=== PATIENT | female | born 1950 | race Caucasian/White ===

== ENCOUNTER 2017-01-04 18:27 | Emergency (ER) | payer MEDICARE, MEDICAID ==
[2017-01-04 18:42] VITALS: BP 125/66
--- NOTE | 2017-01-04 19:14 | EDM.PDOC ---
ED HPI GENERAL MEDICAL PROBLEM - General Chief Complaint: ENT Problem Stated Complaint: COUGH,EYES MATTERED,CONGESTED, [id number] Time Seen by Provider: 01/04/17 19:05 Source of Information: Reports: Patient History Limitations: Reports: No Limitations - History of Present Illness INITIAL COMMENTS - FREE TEXT/NARRATIVE: This 66 yo female patient reports to the ED with a 3 day history of increasing cough, chest, and head congestion. The patient reports she has not attempted to be seen by her primary care provider at this time. The patient reports she may have had a fever yesterday. Onset Date: 01/02/17 Duration: Constant, Getting Worse Location: Reports: Head, Chest Quality: Reports: Ache, Dull, Pressure Severity: Moderate Improves with: Reports: None Worsens with: Reports: None Associated Symptoms: Reports: cough w sputum, Fever/Chills - Related Data Allergies Allergy/AdvReac Type Severity Reaction Status Date / Time ibuprofen AdvReac Mild Nausea Verified 03/20/16 20:22 sulfamethoxazole AdvReac Mild Nausea Verified 03/20/16 20:22 [From Bactrim] Home Meds: Home Meds Ascorbic Acid [Vitamin C] 500 mg PO DAILY 11/07/14 [History] Fenofibrate [Fenofibrate] 160 mg PO DAILY 11/07/14 [History] Fexofenadine/Pseudoephedrine [Sandrita-D 12 Hour] 1 tab PO DAILY PRN 11/07/14 [ History] Levothyroxine 75 mg PO DAILY 11/07/14 [History] Metoprolol Succinate [Toprol XL 50mg] 25 mg PO DAILY 11/07/14 [History] Acetaminophen [Tylenol] 650 mg PO Q6H PRN 12/29/15 [History] Allopurinol [Zyloprim] 1 tab PO DAILY 12/29/15 [History] Aspirin [Halfprin] 1 tab PO DAILY 12/29/15 [History] Calcium Carbonate [Calcium] 1 tab PO BID 12/29/15 [History] Cholecalciferol (Vitamin D3) [Vitamin D3] 1 tab PO DAILY 12/29/15 [History] Cyanocobalamin (Vitamin B12) [Vitamin B12] 1 tab PO DAILY 12/29/15 [History] Multivitamin with Minerals [Multiple Vitamin] 1 tab PO DAILY 12/29/15 [History] Psyllium [Metamucil] 1 tab PO DAILY 12/29/15 [History] Vitamin E 1 tab PO DAILY 12/29/15 [History] Past Medical History HEENT History: Reports: None Cardiovascular History: Reports: High Cholesterol, Hypertension Respiratory History: Reports: SOB Gastrointestinal History: Reports: GERD Genitourinary History: Reports: Other (See Below) Other Genitourinary History: sometimes does not make it to the bathroom fast enough and dribbles in pants ANIMAL NUTRITIONIST History: Reports: Musculoskeletal History: Reports: Fibromyalgia, Gout, Other (See Below) Other Musculoskeletal History: degenerative joint disease Neurological History: Reports: Seizure Psychiatric History: Reports: Depression Endocrine/Metabolic History: Reports: Hypothyroidism Hematologic History: Reports: None Immunologic History: Reports: None Oncologic (Cancer) History: Reports: None Dermatologic History: Reports: None - Infectious Disease History Infectious Disease History: Reports: Chicken Pox, Measles, Mumps - Past Surgical History HEENT Surgical History: Reports: None GI Surgical History: Reports: None Female Surgical History: Reports: Breast Biopsy, Section Musculoskeletal Surgical History: Reports: Shoulder Surgery, Other (See Below) Social & Family History - Tobacco Use Smoking Status *Q: Never Smoker Used Tobacco, but Quit: Yes Month Tobacco Last Used: 500 Second Hand Smoke Exposure: Yes - Caffeine Use Caffeine Use: Reports: Coffee, Soda, Tea - Recreational Drug Use Recreational Drug Use: No - Living Situation & Occupation Living situation: Reports: with Family Occupation: Retired ED ROS GENERAL - Review of Systems Review Of Systems: ROS reveals no pertinent complaints other than HPI. ED EXAM, GENERAL - Physical Exam Exam: See Below Exam Limited By: No Limitations General Appearance: Alert, WD/WN, Mild Distress, Obese Eye Exam: Bilateral Eye: EOMI, Normal Inspection, PERRL Ears: Normal External Exam, Normal Canal, Hearing Grossly Normal, Normal TMs Nose: Normal Inspection, Normal Mucosa, No Blood, Nasal Drainage, Clear Rhinorrhea Throat/Mouth: Normal Inspection, Normal Lips, Normal Teeth, Normal Gums, Normal Oropharynx, Normal Voice, No Airway Compromise Head: Atraumatic, Normocephalic Neck: Normal Inspection, Supple, Non-Tender, Full Range of Motion Respiratory/Chest: No Respiratory Distress, Lungs Clear, Normal Breath Sounds, No Accessory Muscle Use, Chest Non-Tender Cardiovascular: Normal Peripheral Pulses, Regular Rate, Rhythm, No Edema, No Gallop, No JVD, No Murmur, No Rub GI/Abdominal: Normal Bowel Sounds, Soft, Non-Tender, No Organomegaly, No Distention, No Abnormal Bruit, No Mass, Other (obese) (Female) Exam: Deferred Rectal (Female) Exam: Deferred Back Exam: Normal Inspection, Full Range of Motion, NT Extremities: Normal Inspection, Normal Range of Motion, Non-Tender, Normal Capillary Refill, No Pedal Edema Neurological: Alert, Oriented, CN II-XII Intact, Normal Cognition, Normal Gait, Normal Reflexes, No Motor/Sensory Deficits Psychiatric: Normal Affect, Normal Mood Skin Exam: Warm, Dry, Intact, Normal Color, No Rash Lymphatic: No Adenopathy Course - Vital Signs Last Recorded V/S: Last Vital Signs Temp 36.5 C 01/04/17 18:40 Pulse 82 01/04/17 18:40 Resp 16 01/04/17 18:40 BP 125/66 01/04/17 18:40 Pulse Ox 97 01/04/17 18:40 - Orders/Labs/Meds Orders: Active Orders 24 hr Category Date Time Status Chest 2V [CR] Urgent Exams 01/04/17 19:05 Ordered Labs: Laboratory Tests 01/04/17 01/04/17 Range/Units 19:15 19:15 WBC 7.2 (5.0-10.0) 10^3/uL RBC 4.13 L (4.2-5.4) 10^6/uL Hgb 12.7 (12.0-16.0) g/dL Hct 39.0 (37.0-47.0) % MCV 94.4 (80-100) fL MCH 30.8 (27.0-34.0) pg MCHC 32.6 L (33.0-35.0) g/dL Plt Count 235 (150-450) 10^3/uL Neut % (Auto) 60.6 (42.2-75.2) % Lymph % (Auto) 22.9 (20.5-50.1) % [place] % (Auto) 12.1 H (2-8) % Eos % (Auto) 4.0 H (1.0-3.0) % Baso % (Auto) 0.4 (0.0-1.0) % Sodium 143 (135-145) mmol/L Potassium 3.9 (3.6-5.0) mmol/L Chloride 105 (101-111) mmol/L Carbon Dioxide 28.0 (21.0-31.0) mmol/L Anion Gap 13.9 BUN 14 (7-18) mg/dL Creatinine 0.7 (0.6-1.3) mg/dL Est Cr Clr Drug Dosing 66.42 mL/min Estimated GFR (MDRD) > 60 BUN/Creatinine Ratio 20.00 Glucose 122 H (74-105) mg/dL Calcium 9.3 (8.4-10.2) mg/dl Total Bilirubin 0.5 (0.2-1.0) mg/dL AST 16 (10-42) IU/L ALT 16 (10-60) IU/L Alkaline Phosphatase 92 (42-121) IU/L Total Protein 7.4 (6.7-8.2) g/dl Albumin 4.0 (3.2-5.5) g/dl Globulin 3.4 Albumin/Globulin Ratio 1.18 Departure - Departure Time of Disposition: 19:43 Disposition: Home, Self-Care 01 Condition: Fair Clinical Impression: Viral upper respiratory infection - Discharge Information Instructions: Upper Respiratory Infection, Adult, [id number] Forms: ED Department Discharge Care Plan Goals: The patient was advised of the examination, lab and x-ray results during the visit. The patient was encouraged to continue to take [id number] medications for temporary symptom relief. If the patient has any additional symptoms or concerns, the patient should follow-up with her primary care facility or return to the emergency department. - My Orders Last 24 Hours: My Active Orders 01/04/17 19:05 Chest 2V [CR] Urgent - Assessment/Plan Last 24 Hours: My Active Orders 01/04/17 19:05 Chest 2V [CR] Urgent
[2017-01-04 19:40] LABS: CHLORIDE,CL 105 mmol/L (101-111); SODIUM,NA 143 mmol/L (135-145)
== END 2017-01-04 19:50 | disposition home or self-care (01) ==
LOC: DL.ED 18:27
DX: J06.9 Acute upper respiratory infection, unspecified (principal); E78.00 Pure hypercholesterolemia, unspecified; I10 Essential (primary) hypertension; K21.9 Gastro-esophageal reflux disease without esophagitis; E03.9 Hypothyroidism, unspecified; Z88.2 Allergy status to sulfonamides; Z88.6 Allergy status to analgesic agent; Z79.899 Other long term (current) drug therapy; Z79.82 Long term (current) use of aspirin
CPT/HCPCS: 36415; 71020; 80053; 85025; 99283

== ENCOUNTER 2017-02-14 20:07 | Emergency (ER) | payer MEDICARE, MEDICAID ==
[2017-02-14 21:22] VITALS: BP 155/71
[2017-02-14] MEDS ORDERED: Diphtheria,Pertussis(Acell),Tetanus Vaccine 0.5 ML SDV IM ONE (22:15)
[2017-02-14] MEDS ORDERED: Cephalexin 500 MG Cap PO ONE (22:17)
--- NOTE | 2017-02-14 22:21 | EDM.PDOC ---
ED HPI GENERAL MEDICAL PROBLEM - General Chief Complaint: Bite:Animal, Insect Stated Complaint: CAT ATTACKED ON HEAD, [id number] Time Seen by Provider: 02/14/17 22:16 Source of Information: Reports: Patient History Limitations: Reports: No Limitations - History of Present Illness INITIAL COMMENTS - FREE TEXT/NARRATIVE: got scratch by olimpiaa cat PLAN EXAMINER. Head Pain Score (Numeric/FACES): 8 - Related Data Allergies Allergy/AdvReac Type Severity Reaction Status Date / Time ibuprofen AdvReac Mild Nausea Verified 02/14/17 21:17 sulfamethoxazole AdvReac Mild Nausea Verified 02/14/17 21:17 [From Bactrim] Home Meds: Home Meds Ascorbic Acid [Vitamin C] 500 mg PO DAILY 11/07/14 [History] Fenofibrate [Fenofibrate] 160 mg PO DAILY 11/07/14 [History] Fexofenadine/Pseudoephedrine [Sandrita-D 12 Hour] 1 tab PO DAILY PRN 11/07/14 [ History] Levothyroxine 75 mg PO DAILY 11/07/14 [History] Metoprolol Succinate [Toprol XL 50mg] 25 mg PO DAILY 11/07/14 [History] Acetaminophen [Tylenol] 650 mg PO Q6H PRN 12/29/15 [History] Allopurinol [Zyloprim] 1 tab PO DAILY 12/29/15 [History] Aspirin [Halfprin] 1 tab PO DAILY 12/29/15 [History] Calcium Carbonate [Calcium] 1 tab PO BID 12/29/15 [History] Cholecalciferol (Vitamin D3) [Vitamin D3] 1 tab PO DAILY 12/29/15 [History] Cyanocobalamin (Vitamin B12) [Vitamin B12] 1 tab PO DAILY 12/29/15 [History] Multivitamin with Minerals [Multiple Vitamin] 1 tab PO DAILY 12/29/15 [History] Psyllium [Metamucil] 1 tab PO DAILY 12/29/15 [History] Vitamin E 1 tab PO DAILY 12/29/15 [History] Past Medical History HEENT History: Reports: Impaired Vision Cardiovascular History: Reports: High Cholesterol, Hypertension Respiratory History: Reports: SOB Gastrointestinal History: Reports: GERD Genitourinary History: Reports: Other (See Below) Other Genitourinary History: sometimes does not make it to the bathroom fast enough and dribbles in pants HUMAN RESOURCES INTERN History: Reports: Musculoskeletal History: Reports: Fibromyalgia, Gout, Other (See Below) Other Musculoskeletal History: degenerative joint disease Neurological History: Reports: Seizure Psychiatric History: Reports: Depression Endocrine/Metabolic History: Reports: Diabetes, Type II, Hypothyroidism Hematologic History: Reports: None Immunologic History: Reports: None Oncologic (Cancer) History: Reports: None Dermatologic History: Reports: None - Infectious Disease History Infectious Disease History: Reports: Chicken Pox, Measles, Mumps - Past Surgical History HEENT Surgical History: Reports: None GI Surgical History: Reports: None Female Surgical History: Reports: Breast Biopsy, Section Musculoskeletal Surgical History: Reports: Carpal Tunnel, Shoulder Surgery, Other (See Below) Social & Family History - Family History Family Medical History: Noncontributory - Tobacco Use Smoking Status *Q: Former Smoker Used Tobacco, but Quit: Yes Month Tobacco Last Used: ? Second Hand Smoke Exposure: Yes - Caffeine Use Caffeine Use: Reports: None - Recreational Drug Use Recreational Drug Use: No - Living Situation & Occupation Living situation: Reports: with Family Occupation: Retired ED ROS GENERAL - Review of Systems Review Of Systems: ROS reveals no pertinent complaints other than HPI. ED EXAM, ANIMAL BITE - Physical Exam Exam: See Below Exam Limited By: No Limitations General Appearance: Alert, WD/WN, No Apparent Distress, Other (upset) Ears: Hearing Grossly Normal Throat/Mouth: Normal Voice, No Airway Compromise Head: Other (3 x scratch wound on top of head) Neck: Non-Tender, Full Range of Motion Respiratory/Chest: No Respiratory Distress Cardiovascular: Regular Rate, Rhythm GI/Abdominal: Soft, Non-Tender Neurological: Alert, Oriented, Normal Cognition, Normal Gait, No Motor/Sensory Deficits Psychiatric: Normal Affect, Normal Mood Skin Exam: Normal Color, Warm/Dry ED ANIMAL BITE PROCEDURES - Laceration/Wound Repair Kiefer Head Lac/Wound Length In cm: 3 (3 x scratch top of head) Appearance: Superficial, Linear, Clean Skin Prep: Chlorhexidine (Hibiciens) Exploration/Debridement/Repair: Wound Explored, In a Bloodless Field, No Foreign Material Found Closed With: Dermabond Tetanus Status Addressed: Yes Complications: No Course - Vital Signs Last Recorded V/S: Last Vital Signs Temp 35.8 C 02/14/17 21:18 Pulse 84 02/14/17 21:18 Resp 18 02/14/17 21:18 BP 155/71 H 02/14/17 21:18 Pulse Ox 96 02/14/17 21:18 - Orders/Labs/Meds Orders: Active Orders 24 hr Category Date Time Status Vaccines to be Administered [RC] PER UNIT ROUTINE Care 02/14/17 22:15 Ordered Diphth,Pertuss(Acell),Tet Vac [Adacel] Med 02/14/17 22:15 Once 0.5 ml IM .ONCE ONE Departure - Departure Time of Disposition: 22:20 Disposition: Home, Self-Care 01 Condition: Good Clinical Impression: Cat scratch - Discharge Information Instructions: Animal Bite, [id number] Additional Instructions: 1) don't wash hair for 24 hours. after that may wash and use blow dryer 2) recheck if looks infected rx given; keflex 250mg qid x 40 - My Orders Last 24 Hours: My Active Orders 02/14/17 22:15 Vaccines to be Administered [RC] PER UNIT ROUTINE Diphth,Pertuss(Acell),Tet Vac [Adacel] 0.5 ml IM .ONCE ONE - Assessment/Plan Last 24 Hours: My Active Orders 02/14/17 22:15 Vaccines to be Administered [RC] PER UNIT ROUTINE Diphth,Pertuss(Acell),Tet Vac [Adacel] 0.5 ml IM .ONCE ONE
== END 2017-02-14 22:26 | disposition home or self-care (01) ==
LOC: DL.ED 20:07
DX: S01.01XA Laceration without foreign body of scalp, initial encounter (principal); Z23 Encounter for immunization; W55.03XA Scratched by cat, initial encounter
CPT/HCPCS: 12002; 90471; 90715; 99283; A9270

== ENCOUNTER 2017-04-26 23:18 | Emergency (ER) | payer MEDICARE, MEDICAID ==
[2017-04-26] MEDS ORDERED: Albuterol 0.021% 0.63 MG/3 ML Neb Soln INH ONE (23:19)
[2017-04-26 23:40] VITALS: BP 130/70
[2017-04-26] MEDS ORDERED: Albuterol/Ipratropium 3.0-0.5 MG/3 ML Neb Soln NEB ONE (23:49)
[2017-04-27] MEDS ORDERED: Azithromycin 250 MG Tab PO ONE (00:43)
--- NOTE | 2017-04-27 00:48 | EDM.PDOC ---
ED HPI GENERAL MEDICAL PROBLEM - General Chief Complaint: Respiratory Problem Stated Complaint: BAD COLD AND CHILLS [id number] Time Seen by Provider: 04/27/17 00:44 Source of Information: Reports: Patient History Limitations: Reports: No Limitations - History of Present Illness INITIAL COMMENTS - FREE TEXT/NARRATIVE: been feeling sick past few days, coughing sob hot. - Related Data Allergies Allergy/AdvReac Type Severity Reaction Status Date / Time ibuprofen AdvReac Mild Nausea Verified 04/26/17 23:36 sulfamethoxazole AdvReac Mild Nausea Verified 04/26/17 23:36 [From Bactrim] Home Meds: Home Meds Ascorbic Acid [Vitamin C] 500 mg PO DAILY 11/07/14 [History] Fenofibrate [Fenofibrate] 160 mg PO DAILY 11/07/14 [History] Fexofenadine/Pseudoephedrine [Sandrita-D 12 Hour] 1 tab PO DAILY PRN 11/07/14 [ History] Levothyroxine 75 mg PO DAILY 11/07/14 [History] Metoprolol Succinate [Toprol XL 50mg] 25 mg PO DAILY 11/07/14 [History] Acetaminophen [Tylenol] 650 mg PO Q6H PRN 12/29/15 [History] Allopurinol [Zyloprim] 1 tab PO DAILY 12/29/15 [History] Aspirin [Halfprin] 1 tab PO DAILY 12/29/15 [History] Calcium Carbonate [Calcium] 1 tab PO BID 12/29/15 [History] Cholecalciferol (Vitamin D3) [Vitamin D3] 1 tab PO DAILY 12/29/15 [History] Cyanocobalamin (Vitamin B12) [Vitamin B12] 1 tab PO DAILY 12/29/15 [History] Multivitamin with Minerals [Multiple Vitamin] 1 tab PO DAILY 12/29/15 [History] Psyllium [Metamucil] 1 tab PO DAILY 12/29/15 [History] Vitamin E 1 tab PO DAILY 12/29/15 [History] Past Medical History HEENT History: Reports: Impaired Vision Cardiovascular History: Reports: High Cholesterol, Hypertension Respiratory History: Reports: SOB Gastrointestinal History: Reports: GERD Genitourinary History: Reports: Other (See Below) Other Genitourinary History: sometimes does not make it to the bathroom fast enough and dribbles in pants SOFTWARE RECRUITER History: Reports: Musculoskeletal History: Reports: Fibromyalgia, Gout, Other (See Below) Other Musculoskeletal History: degenerative joint disease Neurological History: Reports: Seizure Psychiatric History: Reports: Depression Endocrine/Metabolic History: Reports: Diabetes, Type II, Hypothyroidism Hematologic History: Reports: None Immunologic History: Reports: None Oncologic (Cancer) History: Reports: None Dermatologic History: Reports: None - Infectious Disease History Infectious Disease History: Reports: Chicken Pox, Measles, Mumps - Past Surgical History HEENT Surgical History: Reports: None GI Surgical History: Reports: None Female Surgical History: Reports: Breast Biopsy, Section Musculoskeletal Surgical History: Reports: Carpal Tunnel, Shoulder Surgery, Other (See Below) Social & Family History - Family History Family Medical History: Noncontributory - Tobacco Use Smoking Status *Q: Unknown Ever Smoked Used Tobacco, but Quit: Yes Month Tobacco Last Used: ? Second Hand Smoke Exposure: Yes - Caffeine Use Caffeine Use: Reports: Soda, Tea - Recreational Drug Use Recreational Drug Use: No - Living Situation & Occupation Living situation: Reports: with Family Occupation: Retired ED ROS GENERAL - Review of Systems Review Of Systems: ROS reveals no pertinent complaints other than HPI. ED EXAM, GENERAL - Physical Exam Exam: See Below Exam Limited By: No Limitations General Appearance: Alert, WD/WN, No Apparent Distress, Other (distraught) Ears: Hearing Grossly Normal Throat/Mouth: Normal Voice, No Airway Compromise Head: Atraumatic Neck: Non-Tender, Full Range of Motion Respiratory/Chest: No Respiratory Distress, No Accessory Muscle Use, Rhonchi. No: Decreased Breath Sounds, Retractions, Splinting Cardiovascular: Regular Rate, Rhythm GI/Abdominal: Soft, Non-Tender Neurological: Alert, Oriented, Normal Cognition, Normal Gait, No Motor/Sensory Deficits Psychiatric: Normal Affect, Normal Mood Skin Exam: Warm, Dry, Normal Color Lymphatic: No Adenopathy Course - Vital Signs Last Recorded V/S: Last Vital Signs Temp 37.0 C 04/26/17 23:39 Pulse 83 04/26/17 23:39 Resp 20 04/26/17 23:39 BP 130/70 04/26/17 23:39 Pulse Ox 95 04/26/17 23:39 - Orders/Labs/Meds Orders: Active Orders 24 hr Category Date Time Status RT Aerosol Therapy [RC] ASDIRECTED Care 04/26/17 23:49 Active Meds: Medications Discontinued Medications Generic Name Dose Route Start Last Admin Trade Name Freq PRN Reason Stop Dose Admin Albuterol/Ipratropium 3 ml 04/26/17 23:49 04/26/17 23:54 Duoneb 3.0-0.5 Mg/3 Ml NEB 04/26/17 23:50 3 ml ONETIME ONE Administration Azithromycin 500 mg 04/27/17 00:43 Zithromax PO 04/27/17 00:44 ONETIME ONE - Re-Assessments/Exams Free Text/Narrative Re-Assessment/Exam: 04/27/17 00:46 s/p duoneb = much better. results discussed with pt. Departure - Departure Time of Disposition: 00:46 Disposition: Home, Self-Care 01 Condition: Good Clinical Impression: Bronchospasm with bronchitis, acute - Discharge Information Instructions: Acute Bronchitis, Kpes-zs-Goop Additional Instructions: 1) sleep as much as possible 2) keep warm 3) don't sleep flat at night 4) use neb 3 times daily for breathing 5) recheck as needed rx given; kashmir-arun albuterol 2.5mg solution tid prn - My Orders Last 24 Hours: My Active Orders 04/26/17 23:49 RT Aerosol Therapy [RC] ASDIRECTED - Assessment/Plan Last 24 Hours: My Active Orders 04/26/17 23:49 RT Aerosol Therapy [RC] ASDIRECTED
[2017-04-27] MEDS ORDERED: Albuterol 0.021% 0.63 MG/3 ML Neb Soln ONE (00:53)
== END 2017-04-27 00:50 | disposition home or self-care (01) ==
LOC: DL.ED 23:18
DX: J20.9 Acute bronchitis, unspecified (principal); E78.00 Pure hypercholesterolemia, unspecified; I10 Essential (primary) hypertension; E11.9 Type 2 diabetes mellitus without complications; Z88.8 Allergy status to other drugs, medicaments and biological substances; Z79.899 Other long term (current) drug therapy; Z79.82 Long term (current) use of aspirin
CPT/HCPCS: 71020; 94640; 99283; A9270; 99284

== ENCOUNTER 2017-08-06 05:17 | Day surgery (SDC) | payer MEDICARE, MEDICAID ==
[2017-08-06] MEDS ORDERED: Midazolam 1 MG/ML 2 ML SDV IV ONE ×3 (05:18→06:41)
[2017-08-06] MEDS ORDERED: fentaNYL 100 MCG/2 ML SDV IV ONE ×3 (05:18→06:40)
[2017-08-06] MEDS ORDERED: Dextrose 5%-0.45% NaCl 1,000 ML IV SCH (06:00)
[2017-08-06] MEDS ORDERED: Sodium Chloride 0.9% 10 ML Syringe FLUSH PRN (06:00)
[2017-08-06] MEDS ORDERED: Midazolam 1 MG/ML 2 ML SDV ONE (06:15)
[2017-08-06] MEDS ORDERED: fentaNYL 100 MCG/2 ML SDV ONE (06:15)
[2017-08-06 09:19] VITALS: BP 100/67
--- NOTE | 2017-08-06 12:09 | OR ---
DATE: 08/06/2017 PROCEDURES: Esophagogastroduodenoscopy and multiple pinch biopsies. INSTRUMENT USED: GIF-H180 Olympus video panendoscope. PREMEDICATIONS: No oral topical anesthesia used. Fentanyl 100 mcg intravenous, Versed 1.5 mg intravenous. Nasal 2 L O2 cannula. The procedure was done under pulse oximetry, BP recording, and hand cementer. INDICATION: The patient with a recent onset dysphagia and related chest pain unexplained, not responsive to medical measures, on aspirin. DESCRIPTION OF PROCEDURE: Esophagogastroduodenoscopy is performed for detection of any active erosive lesions. Cardenas esophagus and/or malignancy also under consideration. H. pylori status to be determined, esophageal dilatations if indicated, endoscopic hemostasis therapy if needed. The scope was passed with ease. Adequate visualization of the esophagus was made from proximal to distal areas. No upper esophageal lesions identified. No distal esophageal stricture. No uphill or downhill esophageal varices. No Lucina-Poe tear. Grade A erosive changes were noted by Millard criteria. No esophageal polyp or tumor mass identified. Z-line was seen at around 40 cm distal to the oral verge, configuration consistent with grade 1 by ZAP classification. No proximal gastric varices noted. Gastric fundus examination by retroflexion showed no polypoid lesions. No gastric ulcer, malignant mass, or vascular ectasia identified. Scattered gastric antral erosions were noted. Patchy erythema of the duodenal bulb was noted. Visualized second part of the duodenum was unremarkable. Multiple pinch biopsies were taken from the gastric antrum and proximal body and sent for PyloriTek test for H. pylori, and if negative in an hour, the tissue is to be sent for histopathology. No bleeding was noted from any of the visualized areas at the completion of the examination. IMPRESSION: 1. Patchy duodenitis. 2. Gastric antral erosions. 3. Grade A gastroesophageal reflux disease. The patient tolerated the procedure well. [facility] /[id number]
== END 2017-08-06 08:45 | disposition home or self-care (01) ==
LOC: DL.ENDO 05:17
PROVIDERS: ATTEND Internal Medicine Gastroenterology
DX: K29.50 Unspecified chronic gastritis without bleeding (principal); E66.9 Obesity, unspecified; E11.9 Type 2 diabetes mellitus without complications; F41.1 Generalized anxiety disorder; Z88.2 Allergy status to sulfonamides; Z88.8 Allergy status to other drugs, medicaments and biological substances
CPT/HCPCS: 87077; J2250; J3010; J7042

== ENCOUNTER 2020-07-02 14:35 | Emergency (ER) | payer MEDICAID, MEDICARE ==
[2020-07-02 14:48] VITALS: BP 154/68; PULSE 113
[2020-07-02] MEDS ORDERED: Sodium Chloride 0.9% 1,000 ML IV ONE ×2 (15:04→16:38)
[2020-07-02] MEDS ORDERED: Ondansetron 4 MG/2 ML SDV IV ONE (15:04)
[2020-07-02] MEDS ORDERED: Acetaminophen 325 MG Tab PO ONE (15:04)
[2020-07-02] MEDS: Sodium Chloride 0.9% 10 ML Syringe FLUSH PRN ×2 (15:18→17:12)
[2020-07-02 15:43] LABS: ANION GAP 18.4 mEq/L (7-13); CHLORIDE,CL 103 mmol/L (98-107); SODIUM,NA 139 mmol/L (136-145)
[2020-07-02] MEDS ORDERED: Iopamidol 612 MG/ML 100 ML Bottle IVPUSH ONE (16:21)
--- NOTE | 2020-07-02 17:25 | CT ---
PROCEDURE INFORMATION: Exam: CT Abdomen And Pelvis With Contrast Exam date and time: 07/02/2020 4:55 PM Age: 70 years old Clinical indication: Other: Epigastric and suprapubic pain, diarrhea, clear urine- not infected; Additional info: Gen. Abdominal pain, fever, elev. Lactic acid TECHNIQUE: Imaging protocol: Computed tomography of the abdomen and pelvis with contrast. Radiation optimization: All CT scans at this facility use at least one of these dose optimization techniques: automated exposure control; mA and/or kV adjustment per patient size (includes targeted exams where dose is matched to clinical indication); or iterative reconstruction. Contrast material: [id number]; Contrast volume: 100 ml; Contrast route: INTRAVENOUS (IV); COMPARISON: No relevant prior studies available. FINDINGS: Liver: There is a diffuse decrease in hepatic parenchymal density, consistent with moderate fatty infiltration. There is no mass. Normal opacification of portal and superior mesenteric veins. Gallbladder and bile ducts: Normal. No calcified stones. No ductal dilation. Pancreas: Normal. No ductal dilation. Spleen: Normal. No splenomegaly. Adrenal glands: Normal. No mass. Kidneys and ureters: Normal. No hydronephrosis. Stomach and bowel: Unremarkable. No obstruction. No mucosal thickening. Diverticulosis predominating at the sigmoid colon. No diverticulitis. Appendix: No evidence of appendicitis. Intraperitoneal space: Unremarkable. No free air. No significant fluid collection. Vasculature: Aortoiliac mild atherosclerotic calcification. No abdominal aortic aneurysm. Lymph nodes: Unremarkable. No enlarged lymph nodes. Urinary bladder: Unremarkable as visualized. Reproductive: Unremarkable as visualized. Bones/joints: L5-S1 advanced degenerative disc disease with vacuum disc changes. L5. 5 mm retrolisthesis of L5. Multilevel lumbar spondylitic degenerative disease. No acute fracture. Soft tissues: 4.6 cm fat filled umbilical hernia. There is an infraumbilical left paracentral 5.7 cm fat filled ventral hernia. IMPRESSION: 1. No acute intra-abdominal or pelvic abnormality. 2. Hepatic steatosis. 3. 4.6 fat filled umbilical hernia. 5.7 fat filled infraumbilical hernia. No incarceration. 4. Chronic findings include diverticulosis, L5-S1 degenerative disc disease with L5 retrolisthesis.
--- NOTE | 2020-07-02 18:09 | EDM.PDOC ---
"Scribed by Kaur Jamison 07/02/20 1516 for Juan Manuel Gutiérrez MD ED HPI GENERAL MEDICAL PROBLEM - General Chief Complaint: Abdominal Pain Stated Complaint: NAUSEA Time Seen by Provider: 07/02/20 14:44 Source of Information: Reports: Patient, RN, RN Notes Reviewed History Limitations: Reports: No Limitations - History of Present Illness INITIAL COMMENTS - FREE TEXT/NARRATIVE: Patient presents to ED by POV stating she felt fine yesterday and about 1030 today began running a fever, having chills, feeling nauseated since awakening at 0700hrs. Tmax 102F. She took nothing for fever or nausea, nor her daily pills. Patient admits to burning with urination, dry heaves, and 3-4 episodes of diarrhea. Patient states discomfort to epigastric area, stinging/burning sen sation. Pt rates the pain 10/06. Onset: Today Duration: Constant Location: Reports: Abdomen Quality: Reports: Ache, Burning Severity: Moderate Improves with: Reports: None Worsens with: Reports: Eating, Movement Associated Symptoms: Reports: No Other Symptoms epigastric Pain Score (Numeric/FACES): 6 - Related Data Allergies Allergy/AdvReac Type Severity Reaction Status Date / Time ibuprofen AdvReac Mild Nausea Verified 07/02/20 14:51 sulfamethoxazole AdvReac Mild Nausea Verified 07/02/20 14:51 [From Bactrim] Home Meds: Home Meds Ascorbic Acid [Vitamin C] 500 mg PO DAILY 11/07/14 [History] Fenofibrate 160 mg PO DAILY 11/07/14 [History] Fexofenadine/Pseudoephedrine [Sandrita-D 12 Hour] 1 tab PO DAILY PRN 11/07/14 [History] Levothyroxine 75 mcg PO DAILY 11/07/14 [History] Metoprolol Succinate [Toprol XL 50mg] 25 mg PO DAILY 11/07/14 [History] Acetaminophen [Tylenol] 650 mg PO Q4H PRN 12/29/15 [History] Allopurinol [Zyloprim] 300 mg PO DAILY 12/29/15 [History] Calcium Carbonate [Calcium] 600 mg PO BID 12/29/15 [History] Cholecalciferol (Vitamin D3) [Vitamin D3] 1,000 units PO DAILY 12/29/15 [History] Cyanocobalamin (Vitamin B12) [Vitamin B12] 250 mcg PO DAILY 12/29/15 [History] Multivitamin with Minerals [Multiple Vitamin] 1 tab PO DAILY 12/29/15 [History] Psyllium [Metamucil] 1 tab PO DAILY 12/29/15 [History] Vitamin E 1 tab PO DAILY 12/29/15 [History] Albuterol [IJD: Albuterol] 3 ml INH TID 07/23/17 [History] Albuterol [Ventolin HFA] 2 puff INH Q4HR PRN 07/23/17 [History] Budesonide/Formoterol Fumarate [Symbicort 80-4.5 Mcg Inhaler] 2 puff INH BID 07/23/17 [History] atorvaSTATin [Lipitor] 10 mg PO DAILY 07/23/17 [History] Fluticasone Propionate [Flonase] 2 spray INH BID 07/31/17 [History] Isosorbide Mononitrate [Imdur] 30 mg PO DAILY 07/31/17 [History] Past Medical History HEENT History: Reports: Impaired Vision Cardiovascular History: Reports: High Cholesterol, Hypertension Respiratory History: Reports: Asthma, SOB Other Respiratory History: uses nebulizer prn Gastrointestinal History: Reports: GERD Genitourinary History: Reports: Other (See Below) Other Genitourinary History: sometimes does not make it to the bathroom fast enough and dribbles in pants [employer] History: Reports: Musculoskeletal History: Reports: Back Pain, Chronic, Fibromyalgia, Gout, Neck Pain, Chronic, Other (See Below) Other Musculoskeletal History: degenerative joint disease Neurological History: Reports: Seizure Psychiatric History: Reports: Anxiety, Depression Endocrine/Metabolic History: Reports: Diabetes, Type II, Hypothyroidism Hematologic History: Reports: None Immunologic History: Reports: None Oncologic (Cancer) History: Reports: None Dermatologic History: Reports: None - Infectious Disease History Infectious Disease History: Reports: Chicken Pox, Measles, Mumps - Past Surgical History Head Surgeries/Procedures: Reports: None HEENT Surgical History: Reports: None Cardiovascular Surgical History: Reports: None GI Surgical History: Reports: None Female Surgical History: Reports: Breast Biopsy, Section Musculoskeletal Surgical History: Reports: Carpal Tunnel, Shoulder Surgery, Other (See Below) Other Musculoskeletal Surgeries/Procedures:: L) knee arthrotomy Social & Family History - Family History Family Medical History: No Pertinent Family History - Caffeine Use Caffeine Use: Reports: Soda, Tea Caffeine Use Comment: 1 can pop daily prn - Living Situation & Occupation Living situation: Reports: with Family Occupation: Retired ED ROS GENERAL - Review of Systems Review Of Systems: Comprehensive ROS is negative, except as noted in HPI. ED EXAM, GENERAL - Physical Exam Exam: See Below Exam Limited By: No Limitations General Appearance: Alert, No Apparent Distress, Obese Eye Exam: Bilateral Eye: Normal Inspection (No scleral icterus) Nose: Normal Inspection Throat/Mouth: Normal Lips, Normal Voice, No Airway Compromise, Other (Dry oral mucosa) Head: Atraumatic, Normocephalic Neck: Normal Inspection, Supple, Non-Tender, Full Range of Motion Respiratory/Chest: No Respiratory Distress, Lungs Clear, Normal Breath Sounds, No Accessory Muscle Use, Chest Non-Tender Cardiovascular: Regular Rate, Rhythm, Tachycardia GI/Abdominal: Normal Bowel Sounds, Soft, Tender (Epigastric and suprapubic). No: Guarding, Rigid, Rebound Back Exam: Normal Inspection, CVA Tenderness (R). No: CVA Tenderness (L) Extremities: Normal Inspection, Non-Tender, No Pedal Edema Neurological: Alert, Oriented, CN II-XII Intact, Normal Cognition, Normal Gait, No Motor/Sensory Deficits Psychiatric: Normal Mood Skin Exam: Warm, Dry, Intact, Normal Color, No Rash Course - Vital Signs Last Recorded V/S: Last Vital Signs Temp 99.2 F 07/02/20 14:47 Pulse 113 H 07/02/20 14:47 Resp 20 07/02/20 14:47 BP 154/68 H 07/02/20 14:47 Pulse Ox 95 07/02/20 14:47 - Orders/Labs/Meds Orders: Active Orders 24 hr Category Date Time Status Peripheral IV Care [RC] . DIRECTED Care 07/02/20 15:04 Active CULTURE BLOOD [BC] Stat Lab 07/02/20 15:09 Received CULTURE BLOOD [BC] Stat Lab 07/02/20 15:15 Received CULTURE URINE [RM] Stat Lab 07/02/20 15:47 Received LACTIC ACID [CHEM] Stat Lab 07/02/20 17:35 Received Sodium Chloride 0.9% [Saline Flush] Med 07/02/20 15:03 Active 10 ml FLUSH ASDIRECTED PRN Blood Culture x2 Reflex Set [OM.PC] Stat Oth 07/02/20 15:03 Ordered Peripheral IV Insertion Adult [OM.PC] Stat Oth 07/02/20 15:03 Ordered Medication Orders Sodium Chloride (Saline Flush) 10 ml FLUSH ASDIRECTED PRN PRN Reason: Keep Vein Open Last Admin: 07/02/20 17:12 Dose: 10 ml Documented by: Admin: 07/02/20 15:18 Dose: 10 ml Documented by: MAYUR Labs: Laboratory Tests 07/02/20 07/02/20 07/02/20 Range/Units 15:09 15:09 15:09 WBC 10.1 H (5.0-10.0) 10^3/uL RBC 5.02 (4.2-5.4) 10^6/uL Hgb 15.5 D (12.0-16.0) g/dL Hct 46.1 (37.0-47.0) % MCV 91.8 (80-100) fL MCH 30.9 (27.0-34.0) pg MCHC 33.6 (33.0-35.0) g/dL Plt Count 222 (150-450) 10^3/uL Neut % (Auto) 89.3 H (42.2-75.2) % Lymph % (Auto) 4.7 L (20.5-50.1) % [place] % (Auto) 4.9 (2-8) % Eos % (Auto) 0.9 L (1.0-3.0) % Baso % (Auto) 0.2 (0.0-1.0) % Sodium 139 (136-145) mmol/L Potassium 4.4 (3.5-5.1) mmol/L Chloride 103 (98-107) mmol/L Carbon Dioxide 22 (21-32) mmol/L Anion Gap 18.4 H (7-13) mEq/L BUN 18 (7-18) mg/dL Creatinine 0.90 (0.55-1.02) mg/dL Est Cr Clr Drug Dosing 48.79 mL/min Estimated GFR (MDRD) > 60 BUN/Creatinine Ratio 20.0 (No establ ref range) Glucose 170 H (74-99) mg/dL Lactic Acid 3.2 H* (0.4-2.0) mmol/L Calcium 8.9 (8.5-10.1) mg/dL Total Bilirubin 0.7 (0.2-1.0) mg/dL AST 15 (15-37) U/L ALT 28 (14-59) U/L Alkaline Phosphatase 77 (46-116) U/L Total Protein 7.9 (6.4-8.2) g/dL Albumin 4.0 (3.4-5.0) g/dL Globulin 3.9 Albumin/Globulin Ratio 1.0 Amylase 26 (25-115) U/L Urine Color (YELLOW) Urine Appearance (CLEAR) Urine pH (5.0-9.0) Ur Specific [place] (1.005-1.030) Urine Protein (NEGATIVE) Urine Glucose (UA) (NEGATIVE) Urine Ketones (NEGATIVE) Urine Occult Blood (NEGATIVE) Urine Nitrite (NEGATIVE) Urine Bilirubin (NEGATIVE) Urine Urobilinogen (0.2-1.0) mg/dL Ur Leukocyte Esterase (NEGATIVE) Urine RBC /HPF Urine WBC (0-5/HPF) /HPF Ur Epithelial Cells (NOT SEEN) /HPF Urine Bacteria (0-FEW/HPF) /HPF Urine Mucus (NOT SEEN) /LPF 07/02/20 Range/Units 15:47 WBC (5.0-10.0) 10^3/uL RBC (4.2-5.4) 10^6/uL Hgb (12.0-16.0) g/dL Hct (37.0-47.0) % MCV (80-100) fL MCH (27.0-34.0) pg MCHC (33.0-35.0) g/dL Plt Count (150-450) 10^3/uL Neut % (Auto) (42.2-75.2) % Lymph % (Auto) (20.5-50.1) % [place] % (Auto) (2-8) % Eos % (Auto) (1.0-3.0) % Baso % (Auto) (0.0-1.0) % Sodium (136-145) mmol/L Potassium (3.5-5.1) mmol/L Chloride (98-107) mmol/L Carbon Dioxide (21-32) mmol/L Anion Gap (7-13) mEq/L BUN (7-18) mg/dL Creatinine (0.55-1.02) mg/dL Est Cr Clr Drug Dosing mL/min Estimated GFR (MDRD) BUN/Creatinine Ratio (No establ ref range) Glucose (74-99) mg/dL Lactic Acid (0.4-2.0) mmol/L Calcium (8.5-10.1) mg/dL Total Bilirubin (0.2-1.0) mg/dL AST (15-37) U/L ALT (14-59) U/L Alkaline Phosphatase (46-116) U/L Total Protein (6.4-8.2) g/dL Albumin (3.4-5.0) g/dL Globulin Albumin/Globulin Ratio Amylase (25-115) U/L Urine Color Dark yellow (YELLOW) Urine Appearance Clear (CLEAR) Urine pH 6.0 (5.0-9.0) Ur Specific [place] 1.025 (1.005-1.030) Urine Protein Trace H (NEGATIVE) Urine Glucose (UA) Negative (NEGATIVE) Urine Ketones Negative (NEGATIVE) Urine Occult Blood Negative (NEGATIVE) Urine Nitrite Negative (NEGATIVE) Urine Bilirubin Negative (NEGATIVE) Urine Urobilinogen 0.2 (0.2-1.0) mg/dL Ur Leukocyte Esterase Trace H (NEGATIVE) Urine RBC 0-5 /HPF Urine WBC 0-5 (0-5/HPF) /HPF Ur Epithelial Cells Few (NOT SEEN) /HPF Urine Bacteria Many H (0-FEW/HPF) /HPF Urine Mucus Many H (NOT SEEN) /LPF Meds: Medications Generic Name Dose Route Start Last Admin Trade Name Freq PRN Reason Stop Dose Admin Sodium Chloride 10 ml 07/02/20 15:03 07/02/20 17:12 Saline Flush FLUSH 10 ml ASDIRECTED PRN Administration Keep Vein Open Discontinued Medications Generic Name Dose Route Start Last Admin Trade Name Freq PRN Reason Stop Dose Admin Acetaminophen 650 mg 07/02/20 15:04 07/02/20 15:24 Tylenol PO 07/02/20 15:05 650 mg NOW ONE Administration Sodium Chloride 1,000 mls @ 999 mls/hr 07/02/20 15:04 07/02/20 16:29 Normal Saline IV 07/02/20 16:04 Infused .BOLUS ONE Infusion Sodium Chloride 1,000 mls @ 999 mls/hr 07/02/20 16:38 07/02/20 17:10 Normal Saline IV 07/02/20 17:38 999 mls/hr .BOLUS ONE Administration Ceftriaxone Sodium 2,000 mg/ 50 mls @ 100 mls/hr 07/02/20 16:38 07/02/20 17:12 Sodium Chloride IV 07/02/20 17:07 100 mls/hr ONETIME ONE Administration Iopamidol 100 ml 07/02/20 16:21 07/02/20 16:41 Isovue-300 (61%) IVPUSH 07/02/20 16:22 100 ml ONETIME ONE Administration Ondansetron HCl 4 mg 07/02/20 15:04 07/02/20 15:24 Zofran IV 07/02/20 15:05 4 mg ONETIME ONE Administration - Radiology Interpretation Free Text/Narrative:: [facility] Final Radiology Report Call: [phone] assistance Online chat: [email or web address] Name: PAUL ESPINAL Age: 70Years F Date: 07/02/2020 SSN: -- : [id number] Study: CT ABDOMEN PELVIS W CONT Requesting Physician: JUAN MANUEL GUTIÉRREZ Images: [id number] Addl Studies: Provided Clinical History: Gen. abdominal pain, fever, elev. lactic acid Contrast: With Contrast Medium: [id number] Contrast Amount: 100 mL Contrast Method: Intravenous (IV) Page 1 of 2 PROCEDURE INFORMATION: Exam: CT Abdomen And Pelvis With Contrast Exam date and time: 07/02/2020 4:55 PM Age: 70 years old Clinical indication: Other: Epigastric and suprapubic pain, diarrhea, clear urine- not infected; Additional info: Gen. Abdominal pain, fever, elev. Lactic acid TECHNIQUE: Imaging protocol: Computed tomography of the abdomen and pelvis with contrast. Radiation optimization: All CT scans at this facility use at least one of these dose optimization techniques: automated exposure control; mA and/or kV adjustment per patient size (includes targeted exams where dose is matched to clinical indication); or iterative reconstruction. Contrast material: [id number]; Contrast volume: 100 ml; Contrast route: INTRAVENOUS (IV); COMPARISON: No relevant prior studies available. FINDINGS: Liver: There is a diffuse decrease in hepatic parenchymal density, consistent with moderate fatty infiltration. There is no mass. Normal opacification of portal and superior mesenteric veins. Gallbladder and bile ducts: Normal. No calcified stones. No ductal dilation. Pancreas: Normal. No ductal dilation. Spleen: Normal. No splenomegaly. Adrenal glands: Normal. No mass. Kidneys and ureters: Normal. No hydronephrosis. Stomach and bowel: Unremarkable. No obstruction. No mucosal thickening. Diverticulosis predominating at the sigmoid colon. No diverticulitis. Appendix: No evidence of appendicitis. Intraperitoneal space: Unremarkable. No free air. No significant fluid collection. PAUL ESPINAL | Final Radiology Report CONFIDENTIALITY STATEMENT This report is intended only for use by the referring physician, and only in accordance with law. If you received this in error, call [phone]. Page 2 of 2 Vasculature: Aortoiliac mild atherosclerotic calcification. No abdominal aortic aneurysm. Lymph nodes: Unremarkable. No enlarged lymph nodes. Urinary bladder: Unremarkable as visualized. Reproductive: Unremarkable as visualized. Bones/joints: L5-S1 advanced degenerative disc disease with vacuum disc changes. L5. 5 mm retrolisthesis of L5. Multilevel lumbar spondylitic degenerative disease. No acute fracture. Soft tissues: 4.6 cm fat filled umbilical hernia. There is an infraumbilical left paracentral 5.7 cm fat filled ventral hernia. IMPRESSION: 1. No acute intra-abdominal or pelvic abnormality. 2. Hepatic steatosis. 3. 4.6 fat filled umbilical hernia. 5.7 fat filled infraumbilical hernia. No incarceration. 4. Chronic findings include diverticulosis, L5-S1 degenerative disc disease with L5 retrolisthesis. Thank you for allowing us to participate in the care of your patient. Dictated and Authenticated by: Fay Miles MD 07/02/2020 5:25 PM Central Time ([place] & [place]) - Re-Assessments/Exams Free Text/Narrative Re-Assessment/Exam: 07/02/20 18:06 Pt feels much better. Lactic acid has decreased from 3.2 to 2.6. Pt wishes to be d/c'd home and agrees to f/u in clinic this coming week and will return to ER if worse at any time. Departure - Departure Time of Disposition: 18:07 Disposition: Home, Self-Care 01 Condition: Good Clinical Impression: Pyelonephritis Abdominal pain Qualifiers: Abdominal location: generalized Qualified Code(s): R10.84 - Generalized abdominal pain - Discharge Information *PRESCRIPTION DRUG MONITORING PROGRAM REVIEWED*: Not Applicable *COPY OF PRESCRIPTION DRUG MONITORING REPORT IN PATIENT ESTEPHANIE: Not Applicable Instructions: Pyelonephritis, Adult, [id number], Abdominal Pain, Adult, [id number] Forms: ED Department Discharge Additional Instructions: Rx: Levaquin 500mg Rx: Zofran 4mg Drink plenty of water. Follow up in clinic in the next 3 to 4 days. Return to ER if worse at any time. Sepsis Event Note (ED) - Focused Exam Vital Signs: Vital Signs Temp Temp Pulse Resp BP Pulse Ox 07/02/20 14:47 100.5 F 99.2 F 113 H 20 154/68 H 95 - My Orders Last 24 Hours: My Active Orders 07/02/20 15:03 Sodium Chloride 0.9% [Saline Flush] 10 ml FLUSH ASDIRECTED PRN Blood Culture x2 Reflex Set [OM.PC] Stat Peripheral IV Insertion Adult [OM.PC] Stat 07/02/20 15:04 Peripheral IV Care [RC] . DIRECTED 07/02/20 15:09 CULTURE BLOOD [BC] Stat 07/02/20 15:15 CULTURE BLOOD [BC] Stat 07/02/20 15:47 CULTURE URINE [RM] Stat 07/02/20 17:35 LACTIC ACID [CHEM] Stat - Assessment/Plan Last 24 Hours: My Active Orders 07/02/20 15:03 Sodium Chloride 0.9% [Saline Flush] 10 ml FLUSH ASDIRECTED PRN Blood Culture x2 Reflex Set [OM.PC] Stat Peripheral IV Insertion Adult [OM.PC] Stat 07/02/20 15:04 Peripheral IV Care [RC] . DIRECTED 07/02/20 15:09 CULTURE BLOOD [BC] Stat 07/02/20 15:15 CULTURE BLOOD [BC] Stat 07/02/20 15:47 CULTURE URINE [RM] Stat 07/02/20 17:35 LACTIC ACID [CHEM] Stat I have read and agree with the documentation that has been completed regarding this visit. By signing this record, I attest that the documentation was completed in my physical presence and is an accurate record of the encounter."
== END 2020-07-02 18:50 | disposition home or self-care (01) ==
LOC: DL.ED 14:35
DX: N12 Tubulo-interstitial nephritis, not specified as acute or chronic (principal); R10.84 Generalized abdominal pain; E78.00 Pure hypercholesterolemia, unspecified; I10 Essential (primary) hypertension; J45.909 Unspecified asthma, uncomplicated; E11.9 Type 2 diabetes mellitus without complications; E03.9 Hypothyroidism, unspecified; E66.9 Obesity, unspecified; Z68.36 Body mass index [BMI] 36.0-36.9, adult; Z88.6 Allergy status to analgesic agent; Z88.2 Allergy status to sulfonamides; Z79.899 Other long term (current) drug therapy
CPT/HCPCS: 36415; 74177; 80053; 81001; 82150; 83605; 85025; 87040; 87086; 87088; 87186; 96365; 96375; 99283; 99284; A9270; J0696; J2405; J7030; Q9967

== ENCOUNTER 2021-01-28 19:27 | Emergency (ER) | payer MEDICARE ==
[2021-01-28 20:52] LABS: ANION GAP 15.1 mEq/L (7-13); CHLORIDE,CL 104 mmol/L (98-107); SODIUM,NA 142 mmol/L (136-145)
[2021-01-28 21:11] LABS: CORONAVIRUS COVID-19 NAA NEGATIVE (NEGATIVE)
--- NOTE | 2021-01-28 21:43 | CR ---
PROCEDURE INFORMATION: Exam: XR Chest Exam date and time: 01/28/2021 8:30 PM Age: 70 years old Clinical indication: Cough; Additional info: ? Pneumonia TECHNIQUE: Imaging protocol: XR of the chest. Views: 2 views. COMPARISON: CR Chest 2V 04/26/2017 11:49 PM FINDINGS: Lungs: Unremarkable. No consolidation. Pleural spaces: Unremarkable. No pleural effusion. No pneumothorax. Heart/Mediastinum: Unremarkable. No cardiomegaly. Bones/joints: No evidence of acute osseous abnormality. IMPRESSION: No radiographically apparent acute abnormality in the chest.
[2021-01-28 22:04] VITALS: BP 119/74; PULSE 83
--- NOTE | 2021-01-28 22:15 | EDM.PDOC ---
ED HPI GENERAL MEDICAL PROBLEM - General Chief Complaint: Respiratory Problem Stated Complaint: PNEUMONIA, BRONCHITIS PER PT UNSURE WHICH Time Seen by Provider: 01/28/21 22:15 Source of Information: Reports: Patient, RN, RN Notes Reviewed History Limitations: Reports: No Limitations - History of Present Illness INITIAL COMMENTS - FREE TEXT/NARRATIVE: Patient is a 70-year-old female who presents to ER with complaint of possible bronchitis or pneumonia. Patient states she does have a history of COPD. Patient states she has had a temp up to 99.9, cough, pain in the chest when coughing and across the back, productive cough with green sputum. Also complains of watery eyes, sinus congestion, and some shortness of breath here and there. Patient denies any nausea, vomiting, diarrhea. States she is not currently smoking, but was a past smoker. Onset: Gradual Associated Symptoms: Reports: Chest Pain, cough w sputum, Shortness of Breath - Related Data Allergies Allergy/AdvReac Type Severity Reaction Status Date / Time ibuprofen AdvReac Mild Nausea Verified 07/02/20 14:51 sulfamethoxazole AdvReac Mild Nausea Verified 07/02/20 14:51 [From Bactrim] Home Meds: Home Meds Ascorbic Acid [Vitamin C] 500 mg PO DAILY 11/07/14 [History] Fenofibrate 160 mg PO DAILY 11/07/14 [History] Fexofenadine/Pseudoephedrine [Sandrita-D 12 Hour] 1 tab PO DAILY PRN 11/07/14 [History] Levothyroxine 75 mcg PO DAILY 11/07/14 [History] Metoprolol Succinate [Toprol XL 50mg] 25 mg PO DAILY 11/07/14 [History] Acetaminophen [Tylenol] 650 mg PO Q4H PRN 12/29/15 [History] Allopurinol [Zyloprim] 300 mg PO DAILY 12/29/15 [History] Calcium Carbonate [Calcium] 600 mg PO BID 12/29/15 [History] Cholecalciferol (Vitamin D3) [Vitamin D3] 1,000 units PO DAILY 12/29/15 [History] Cyanocobalamin (Vitamin B12) [Vitamin B12] 250 mcg PO DAILY 12/29/15 [History] Multivitamin with Minerals [Multiple Vitamin] 1 tab PO DAILY 12/29/15 [History] Psyllium [Metamucil] 1 tab PO DAILY 12/29/15 [History] Vitamin E 1 tab PO DAILY 12/29/15 [History] Albuterol [IJD: Albuterol] 3 ml INH TID 07/23/17 [History] Albuterol [Ventolin HFA] 2 puff INH Q4HR PRN 07/23/17 [History] Budesonide/Formoterol Fumarate [Symbicort 80-4.5 Mcg Inhaler] 2 puff INH BID 07/23/17 [History] atorvaSTATin [Lipitor] 10 mg PO DAILY 07/23/17 [History] Fluticasone Propionate [Flonase] 2 spray INH BID 07/31/17 [History] Isosorbide Mononitrate [Imdur] 30 mg PO DAILY 07/31/17 [History] Past Medical History HEENT History: Reports: Impaired Vision Cardiovascular History: Reports: High Cholesterol, Hypertension Respiratory History: Reports: Asthma, SOB Other Respiratory History: uses nebulizer prn Gastrointestinal History: Reports: GERD Genitourinary History: Reports: Other (See Below) Other Genitourinary History: sometimes does not make it to the bathroom fast enough and dribbles in pants [employer] History: Reports: Musculoskeletal History: Reports: Back Pain, Chronic, Fibromyalgia, Gout, Neck Pain, Chronic, Other (See Below) Other Musculoskeletal History: degenerative joint disease Neurological History: Reports: Seizure Psychiatric History: Reports: Anxiety, Depression Endocrine/Metabolic History: Reports: Diabetes, Type II, Hypothyroidism Hematologic History: Reports: None Immunologic History: Reports: None Oncologic (Cancer) History: Reports: None Dermatologic History: Reports: None - Infectious Disease History Infectious Disease History: Reports: Chicken Pox, Measles, Mumps - Past Surgical History Head Surgeries/Procedures: Reports: None HEENT Surgical History: Reports: None Cardiovascular Surgical History: Reports: None GI Surgical History: Reports: None Female Surgical History: Reports: Breast Biopsy, Section Musculoskeletal Surgical History: Reports: Carpal Tunnel, Shoulder Surgery, Other (See Below) Other Musculoskeletal Surgeries/Procedures:: L) knee arthrotomy Social & Family History - Family History Family Medical History: No Pertinent Family History - Tobacco Use Tobacco Use Status *Q: Never Tobacco User Second Hand Smoke Exposure: Yes - Caffeine Use Caffeine Use: Reports: Soda Caffeine Use Comment: 1 can pop daily prn - Recreational Drug Use Recreational Drug Use: No - Living Situation & Occupation Living situation: Reports: with Family Occupation: Retired ED ROS GENERAL - Review of Systems Review Of Systems: Comprehensive ROS is negative, except as noted in HPI. ED EXAM, GENERAL - Physical Exam Exam: See Below Exam Limited By: No Limitations General Appearance: Alert, WD/WN, No Apparent Distress Eye Exam: Bilateral Eye: EOMI, Normal Inspection Ears: Normal External Exam, Hearing Grossly Normal Nose: Normal Inspection Throat/Mouth: Normal Inspection, Normal Voice, No Airway Compromise Head: Atraumatic, Normocephalic Neck: Normal Inspection, Supple, Non-Tender, Full Range of Motion Respiratory/Chest: No Respiratory Distress, No Accessory Muscle Use, Chest Non- Tender, Decreased Breath Sounds, Crackles (bases bilaterally), Rhonchi (throughout) Cardiovascular: Normal Peripheral Pulses, Regular Rate, Rhythm, No Edema, No Gallop, No JVD, No Murmur, No Rub Peripheral Pulses: 2+: Radial (L), Radial (R) GI/Abdominal: Normal Bowel Sounds, Soft, Non-Tender (Female) Exam: Deferred Rectal (Female) Exam: Deferred Back Exam: Normal Inspection, Full Range of Motion, NT Extremities: Normal Inspection, Normal Range of Motion, Non-Tender, Normal Capillary Refill, No Pedal Edema Neurological: Alert, Oriented, Normal Cognition, No Motor/Sensory Deficits Psychiatric: Normal Affect, Normal Mood Skin Exam: Warm, Dry, Intact, Normal Color, No Rash Lymphatic: No Adenopathy Course - Vital Signs Last Recorded V/S: Last Vital Signs Temp 99.1 F 01/28/21 22:03 Pulse 83 01/28/21 22:03 Resp 20 01/28/21 22:03 BP 119/74 01/28/21 22:03 Pulse Ox 94 L 01/28/21 22:03 - Orders/Labs/Meds Orders: Active Orders 24 hr Category Date Time Status CULTURE BLOOD [BC] Stat Lab 01/28/21 20:25 Received CULTURE BLOOD [BC] Stat Lab 01/28/21 20:30 Received Blood Culture x2 Reflex Set [OM.PC] Stat Oth 01/28/21 20:18 Ordered Labs: Laboratory Tests 01/28/21 01/28/21 01/28/21 Range/Units 20:25 20:30 20:30 WBC 7.9 (5.0-10.0) 10^3/uL RBC 4.48 (4.2-5.4) 10^6/uL Hgb 13.9 D (12.0-16.0) g/dL Hct 42.1 (37.0-47.0) % MCV 94.0 (80-100) fL MCH 31.0 (27.0-34.0) pg MCHC 33.0 (33.0-35.0) g/dL Plt Count 304 D (150-450) 10^3/uL Neut % (Auto) 64.8 (42.2-75.2) % Lymph % (Auto) 17.9 L (20.5-50.1) % [place] % (Auto) 13.1 H (2-8) % Eos % (Auto) 3.7 H (1.0-3.0) % Baso % (Auto) 0.5 (0.0-1.0) % Sodium 142 (136-145) mmol/L Potassium 4.1 (3.5-5.1) mmol/L Chloride 104 (98-107) mmol/L Carbon Dioxide 27 (21-32) mmol/L Anion Gap 15.1 H (7-13) mEq/L BUN 16 (7-18) mg/dL Creatinine 0.79 (0.55-1.02) mg/dL Est Cr Clr Drug Dosing 50.91 mL/min Estimated GFR (MDRD) > 60 BUN/Creatinine Ratio 20.3 (No establ ref range) Glucose 168 H (70-99) mg/dL Lactic Acid (0.4-2.0) mmol/L Calcium 9.2 (8.5-10.1) mg/dL Total Bilirubin 0.4 (0.2-1.0) mg/dL AST 12 L (15-37) U/L ALT 20 (14-59) U/L Alkaline Phosphatase 87 (46-116) U/L Total Protein 7.9 (6.4-8.2) g/dL Albumin 3.7 (3.4-5.0) g/dL Globulin 4.2 Albumin/Globulin Ratio 0.9 Influenza Type A RNA Negative (NEGATIVE) Influenza Type B RNA Negative (NEGATIVE) SARS-CoV-2 RNA (TACOS) Negative (NEGATIVE) 01/28/21 Range/Units 20:30 WBC (5.0-10.0) 10^3/uL RBC (4.2-5.4) 10^6/uL Hgb (12.0-16.0) g/dL Hct (37.0-47.0) % MCV (80-100) fL MCH (27.0-34.0) pg MCHC (33.0-35.0) g/dL Plt Count (150-450) 10^3/uL Neut % (Auto) (42.2-75.2) % Lymph % (Auto) (20.5-50.1) % [place] % (Auto) (2-8) % Eos % (Auto) (1.0-3.0) % Baso % (Auto) (0.0-1.0) % Sodium (136-145) mmol/L Potassium (3.5-5.1) mmol/L Chloride (98-107) mmol/L Carbon Dioxide (21-32) mmol/L Anion Gap (7-13) mEq/L BUN (7-18) mg/dL Creatinine (0.55-1.02) mg/dL Est Cr Clr Drug Dosing mL/min Estimated GFR (MDRD) BUN/Creatinine Ratio (No establ ref range) Glucose (70-99) mg/dL Lactic Acid 1.5 (0.4-2.0) mmol/L Calcium (8.5-10.1) mg/dL Total Bilirubin (0.2-1.0) mg/dL AST (15-37) U/L ALT (14-59) U/L Alkaline Phosphatase (46-116) U/L Total Protein (6.4-8.2) g/dL Albumin (3.4-5.0) g/dL Globulin Albumin/Globulin Ratio Influenza Type A RNA (NEGATIVE) Influenza Type B RNA (NEGATIVE) SARS-CoV-2 RNA (TACOS) (NEGATIVE) Meds: Medications Discontinued Medications Generic Name Dose Route Start Last Admin Trade Name Freq PRN Reason Stop Dose Admin Azithromycin 500 mg 01/28/21 22:25 01/28/21 22:48 Azithromycin 250 Mg Tab PO 01/28/21 22:26 500 mg ONETIME ONE Administration Prednisone 40 mg 01/28/21 22:25 01/28/21 22:48 Prednisone 20 Mg Tab PO 01/28/21 22:26 40 mg ONETIME ONE Administration - Radiology Interpretation Free Text/Narrative:: Chest xray: [facility] [place] [facility] Final Radiology Report Call: [phone] assistance Online chat: [email or web address] Name: PAUL ESPINAL Age: 70Years F Date: 01/28/2021 SSN: -- : [id number] Study: CR CHEST 2V Requesting Physician: Bettie Peck Images: 2 Addl Studies: Provided Clinical History: ?pneumonia Contrast: Contrast Medium: Contrast Amount: Contrast Method: CONFIDENTIALITY STATEMENT This report is intended only for use by the referring physician, and only in accordance with law. If you received this in error, call [phone]. Page 1 of 1 PROCEDURE INFORMATION: Exam: XR Chest Exam date and time: 01/28/2021 8:30 PM Age: 70 years old Clinical indication: Cough; Additional info: ? Pneumonia TECHNIQUE: Imaging protocol: XR of the chest. Views: 2 views. COMPARISON: CR Chest 2V 04/26/2017 11:49 PM FINDINGS: Lungs: Unremarkable. No consolidation. Pleural spaces: Unremarkable. No pleural effusion. No pneumothorax. Heart/Mediastinum: Unremarkable. No cardiomegaly. Bones/joints: No evidence of acute osseous abnormality. IMPRESSION: No radiographically apparent acute abnormality in the chest. Thank you for allowing us to participate in the care of your patient. Dictated and Authenticated by: Quentin Franklin MD 01/28/2021 9:43 PM Central Time ([place] & [place]) See rad report Departure - Departure Time of Disposition: 22:46 Disposition: Home, Self-Care 01 Condition: Good Clinical Impression: COPD exacerbation - Discharge Information *PRESCRIPTION DRUG MONITORING PROGRAM REVIEWED*: No *COPY OF PRESCRIPTION DRUG MONITORING REPORT IN PATIENT ESTEPHANIE: No Instructions: Chronic Obstructive Pulmonary Disease Exacerbation, [id number] Referrals: PCP,None [Primary Care Provider] - Forms: ED Department Discharge Additional Instructions: Rx: Azithromycin 250 mg orally once daily for the next 4 days, begin 01/29/2021 Rx: Prednisone 20 mg, 2 orally daily x4 days, begin 01/29/2021 Rx: Tessalon Perles 100 mg, 2 orally 3 times daily as needed for cough May use [id number] Robitussin for cough May use Tylenol as directed for pain/fever Return to the ER with any worsening of symptoms Follow-up with your primary care provider Sepsis Event Note (ED) - Evaluation Sepsis Screening Result: No Definite Risk - Focused Exam Vital Signs: Vital Signs Temp Pulse Resp BP Pulse Ox 01/28/21 22:03 99.1 F 83 20 119/74 94 L 01/28/21 20:30 98.9 F 91 20 129/65 94 L - My Orders Last 24 Hours: My Active Orders 01/28/21 20:18 Blood Culture x2 Reflex Set [OM.PC] Stat 01/28/21 20:25 CULTURE BLOOD [BC] Stat 01/28/21 20:30 CULTURE BLOOD [BC] Stat - Assessment/Plan Last 24 Hours: My Active Orders 01/28/21 20:18 Blood Culture x2 Reflex Set [OM.PC] Stat 01/28/21 20:25 CULTURE BLOOD [BC] Stat 01/28/21 20:30 CULTURE BLOOD [BC] Stat
[2021-01-28] MEDS ORDERED: Azithromycin 250 MG Tab PO ONE (22:25)
[2021-01-28] MEDS ORDERED: predniSONE 20 MG Tab PO ONE (22:25)
== END 2021-01-28 22:49 | disposition home or self-care (01) ==
LOC: DL.ED 19:27
DX: J44.1 Chronic obstructive pulmonary disease with (acute) exacerbation (principal); E78.00 Pure hypercholesterolemia, unspecified; I10 Essential (primary) hypertension; R56.9 Unspecified convulsions; E11.9 Type 2 diabetes mellitus without complications; E03.9 Hypothyroidism, unspecified; M10.9 Gout, unspecified; Z77.22 Contact with and (suspected) exposure to environmental tobacco smoke (acute) (chronic); Z88.6 Allergy status to analgesic agent; Z88.2 Allergy status to sulfonamides; Z20.822 Contact with and (suspected) exposure to COVID-19
CPT/HCPCS: 0240U; 36415; 71046; 80053; 83605; 85025; 87040; 99285; A9270; J7512

== ENCOUNTER 2022-02-13 19:42 | Emergency (ER) | payer MEDICARE ==
[2022-02-13] MEDS ORDERED: Orphenadrine 60 MG/2 ML Inj IM ONE (22:17)
[2022-02-13] MEDS ORDERED: Ketorolac 30 MG/ML SDV IM ONE (22:17)
[2022-02-13 22:37] VITALS: BP 100/54; PULSE 76
== END 2022-02-13 23:01 | disposition home or self-care (01) ==
LOC: DL.ED 19:42
DX: S39.012A Strain of muscle, fascia and tendon of lower back, initial encounter (principal); J45.909 Unspecified asthma, uncomplicated; I10 Essential (primary) hypertension; E11.9 Type 2 diabetes mellitus without complications; Z88.6 Allergy status to analgesic agent; Z88.2 Allergy status to sulfonamides; Z79.899 Other long term (current) drug therapy; Z79.84 Long term (current) use of oral hypoglycemic drugs; Y92.69 Other specified industrial and construction area as the place of occurrence of the external cause
CPT/HCPCS: 71100; 96372; 99284; J1885; J2360

== ENCOUNTER 2022-04-07 13:59 | Emergency (ER) | payer MEDICARE ==
[2022-04-07] MEDS ORDERED: Amoxicillin/Clavulanate K 875-125 MG Tab PO ONE ×2 (14:00→15:23)
[2022-04-07 14:24] VITALS: BP 143/78; PULSE 79
[2022-04-07 14:55] LABS: CORONAVIRUS COVID-19 NAA NEGATIVE (NEGATIVE); RESPIRATORY SYNCYTIAL VIR NAA NEGATIVE (NEGATIVE)
[2022-04-07] MEDS ORDERED: Amoxicillin/Clavulanate K 875-125 MG Tab ONE (15:34)
== END 2022-04-07 15:39 | disposition home or self-care (01) ==
LOC: DL.ED 13:59
DX: J01.90 Acute sinusitis, unspecified (principal); E78.00 Pure hypercholesterolemia, unspecified; I10 Essential (primary) hypertension; J44.9 Chronic obstructive pulmonary disease, unspecified; K21.9 Gastro-esophageal reflux disease without esophagitis; M10.9 Gout, unspecified; E66.9 Obesity, unspecified; E03.9 Hypothyroidism, unspecified; Z68.36 Body mass index [BMI] 36.0-36.9, adult; Z88.1 Allergy status to other antibiotic agents; Z88.8 Allergy status to other drugs, medicaments and biological substances; Z79.84 Long term (current) use of oral hypoglycemic drugs; Z79.899 Other long term (current) drug therapy; Z77.22 Contact with and (suspected) exposure to environmental tobacco smoke (acute) (chronic); Z20.822 Contact with and (suspected) exposure to COVID-19
CPT/HCPCS: 0241U; 99283; A9270

== ENCOUNTER 2024-07-21 01:56 | Emergency (ER) | payer MEDICARE, OTHER ==
[2024-07-21 02:09] VITALS: BP 139/68; PULSE 73
[2024-07-21] MEDS: Take Home: Acetaminophen/HYDROcodone 325-5 MG, 5 Tab Pack PO ONE (02:58)
== END 2024-07-21 03:05 | disposition home or self-care (01) ==
LOC: DL.ED 01:56
DX: S46.912A Strain of unspecified muscle, fascia and tendon at shoulder and upper arm level, left arm, initial encounter (principal); I10 Essential (primary) hypertension; E78.00 Pure hypercholesterolemia, unspecified; J44.89 Other specified chronic obstructive pulmonary disease; E11.9 Type 2 diabetes mellitus without complications; E03.9 Hypothyroidism, unspecified; Z88.6 Allergy status to analgesic agent; Z88.2 Allergy status to sulfonamides; Z79.890 Hormone replacement therapy; Z79.51 Long term (current) use of inhaled steroids; Z79.899 Other long term (current) drug therapy; Z79.84 Long term (current) use of oral hypoglycemic drugs; W01.0XXA Fall on same level from slipping, tripping and stumbling without subsequent striking against object, initial encounter; Y93.89 Activity, other specified
CPT/HCPCS: 73030; 73060; 99282; 99283; A9270

== ENCOUNTER 2024-12-19 19:16 | Emergency (ER) | payer MEDICARE ==
[2024-12-19] MEDS: Bacitracin Oint 1 GM U/D Packet TOP ONE (19:50)
[2024-12-19 21:17] VITALS: BP 124/69; PULSE 66
== END 2024-12-19 19:55 | disposition home or self-care (01) ==
LOC: DL.ED 19:16
DX: S50.12XA Contusion of left forearm, initial encounter (principal); S80.812A Abrasion, left lower leg, initial encounter; I10 Essential (primary) hypertension; E78.00 Pure hypercholesterolemia, unspecified; E03.9 Hypothyroidism, unspecified; E11.9 Type 2 diabetes mellitus without complications; J44.89 Other specified chronic obstructive pulmonary disease; K21.9 Gastro-esophageal reflux disease without esophagitis; Z79.899 Other long term (current) drug therapy; Z79.890 Hormone replacement therapy; Z79.51 Long term (current) use of inhaled steroids; Z88.2 Allergy status to sulfonamides; Z88.6 Allergy status to analgesic agent; W01.0XXA Fall on same level from slipping, tripping and stumbling without subsequent striking against object, initial encounter; Y93.01 Activity, walking, marching and hiking
CPT/HCPCS: 99282; A9270; 99283